=== PATIENT | female | born 1995 | race Caucasian/White ===

== ENCOUNTER 2019-01-10 06:09 | Inpatient (IN) | payer BC ==
[2019-01-10] MEDS ORDERED: OXYTOCIN 10 UNIT/ML 1 ML VIAL IM PRN (06:16)
[2019-01-10] MEDS ORDERED: LIDOCAINE 0.5% (PF) 5 MG/ML (50 ML SDV) SQ PRN (06:16)
[2019-01-10] MEDS ORDERED: CARBOPROST TROMETHAMINE 250 MCG/ML 1 ML AMP IM PRN (06:16)
[2019-01-10] MEDS ORDERED: METHYLERGONOVINE 0.2 MG/ML 1 ML AMP IM PRN (06:16)
[2019-01-10] MEDS ORDERED: TERBUTALINE 1 MG/ML VIAL SQ PRN (06:16)
[2019-01-10 06:24] VITALS: BMI 29.8
[2019-01-10] MEDS: LACTATED RINGERS 1,000 ML IV SCH ×3 (06:28→12:32)
[2019-01-10] MEDS: OXYTOCIN 30 UNITS/500 ML NS 30 UNIT in SALINE 1 500ML.BAG IV SCH (06:34)
[2019-01-10 06:51] LABS: Anisocytosis Slight; Basophils # (A) 0.1 k/uL (0-0.2); Basophils % (A) 1 %; Eosinophils # (A) 0.2 k/uL (0-0.7); Eosinophils % (A) 2 %; HCT 37.7 % (34.0-46.0); HGB 12.6 gm/dL (11.4-16.0); Lymphocytes # (A) 2.5 k/uL (1.0-4.8); Lymphocytes % (A) 22 %; MCH 31.2 pg (25.0-35.0); MCHC 33.4 g/dL (31.0-37.0); MCV 93.4 fL (80.0-100.0); Mean Platelet Volume 8.4; Monocytes # (A) 0.8 k/uL (0-1.0); Monocytes % (A) 7 %; Neutrophils # (A) 7.6 k/uL (1.3-7.7); Neutrophils % (A) 67 %; Platelet Count 279 k/uL (150-450); RBC 4.04 m/uL (3.80-5.40); RDW 16.9 % (11.5-15.5); WBC 11.4 k/uL (3.8-10.6)
[2019-01-10] MEDS ORDERED: BUTORPHANOL 1 MG/ML 1 ML VIAL IV PRN (10:01)
--- NOTE | 2019-01-10 10:01 | P.HPOB ---
History of Present Illness H&P Date: 01/10/19 Chief Complaint: IUP at 40-3/7 weeks, This is a 23-year-old 2 para 0010 at 40-3/7 weeks with an estimated due date of 01/07/2019 based on last menstrual period and consistent with 19 week ultrasound. Patient has been receiving routine care with myself and h as been essentially uncomplicated. Ultrasound was completed at 39 weeks' revealing an EFW of 7 lbs. 10 oz. which was the 45th percentile, amniotic fluid index was normal, at 17. On bloodwork this patient has a blood type of O+, rubella is immune, RPR nonreactive, B surface antigen negative, HIV negative, she did pass her one- hour Glucola with a result of 133 and 6/20. Group beta strep was negative on 12/06/18. NTD Was received on 11/07/18. Review of Systems Constitutional: Reports fatigue, Denies chills, Denies fever Ears, nose, mouth and throat: Denies headache Cardiovascular: Reports leg edema Respiratory: Denies dyspnea Gastrointestinal: Denies nausea, Denies vomiting Genitourinary: Reports Past Medical History Past Medical History: No Reported History History of Any Multi-Drug Resistant Organisms: None Reported Additional Past Surgical History / Comment(s): jennifer removed from back at age 12 Past Anesthesia/Blood Transfusion Reactions: No Reported Reaction Past Psychological History: No Psychological Hx Reported Smoking Status: Never smoker Past Alcohol Use History: None Reported Past Drug Use History: None Reported - Past Family History Mother Family Medical History: No Reported History Medications and Allergies Home Medications Medication Instructions Recorded Confirmed Type No Known Home Medications 01/10/19 01/10/19 History Allergies Allergy/AdvReac Type Severity Reaction Status Date / Time No Known Allergies Allergy Verified 01/10/19 06:16 Exam Osteopathic Statement: *. No significant issues noted on an osteopathic structural exam other than those noted in the History and Physical/Consult. Vital Signs Temp Pulse Resp BP Pulse Ox 01/10/19 06:18 97.8 F 76 14 133/73 98 Intake and Output 01/09/19 01/10/19 01/10/19 22:59 06:59 14:59 Other: Weight 78.925 kg Targeted physical exam is performed and state in general this a well-nourished well-developed female in no acute distress, breathing is noted to be nonlabored her heart has regular rate and rhythm, her abdomen is noted to be gravid and appropriate for gestational age, heart tones are noted to be category 1 and she is sarahi every 5 minutes, on cervical exam she was 2/50/-2 station. Repeat reexamination was done approximately an hour and half later she was noted to be 3/70/-2 therefore amniotomy was performed and clear fluid was obtained. heart tones remained category 1. Results Result Diagrams: 01/10/19 06:28 Abnormal Lab Results - Last 24 Hours (Table) 01/10/19 Range/Units 06:28 WBC 11.4 H (3.8-10.6) k/uL RDW 16.9 H (11.5-15.5) % Assessment and Plan (1) Post-dates Current Visit: Yes Status: Acute Code(s): O48.0 - POST-TERM SNOMED Code(s): 70189697 Plan: Patient is admitted to labor and delivery for Pitocin induction of labor. Pitocin is started per hospital protocol. Patient is offered Stadol/epidural for analgesia throughout labor she will decide which she would like. Anticipate spontaneous vaginal delivery later today.
[2019-01-10] MEDS ORDERED: SODIUM CHLORIDE 0.9% 100 ML BAG ONE (11:05)
[2019-01-10] MEDS ORDERED: ROPIVACAINE 5MG/ML 20ML VIAL ONE (11:05)
[2019-01-10] MEDS ORDERED: fentaNYL (PF) 50 MCG/ML 5 ML AMP ONE (11:05)
[2019-01-10] MEDS ORDERED: CITRIC ACID-SODIUM CITRATE 15 ML CUP PO ONE (17:16)
[2019-01-10] MEDS ORDERED: MORPHINE SULFATE (PF) 0.3 MG/0.3 ML SYR ONE (17:27)
[2019-01-10] MEDS ORDERED: OXYTOCIN 10 UNIT/ML 1 ML VIAL ONE (17:27)
[2019-01-10] MEDS ORDERED: ONDANSETRON 4 MG/2 ML VIAL IVP PRN (18:09)
[2019-01-10] MEDS ORDERED: METOCLOPRAMIDE 5 MG/ML 2 ML VIAL IVP PRN (18:09)
[2019-01-10] MEDS ORDERED: NALOXONE 0.4 MG/ML 1 ML VIAL IV PRN (18:09)
[2019-01-10] MEDS ORDERED: ACETAMINOPHEN IV (For NPO) 1,000 MG in EMPTY BAG 1 BAG IVPB ONE (18:09)
[2019-01-10] MEDS ORDERED: diphenhydrAMINE 50 MG/ML 1 ML VIAL IVP PRN ×2 (18:09)
[2019-01-10] MEDS ORDERED: diphenhydrAMINE 50 MG CAP PO PRN (18:09)
[2019-01-10] MEDS ORDERED: ZOLPIDEM 5 MG TAB PO PRN (18:09)
[2019-01-10] MEDS ORDERED: HYDROcodone/APAP 5-325MG 1 EACH TAB PO PRN (18:09)
[2019-01-10] MEDS ORDERED: diphenhydrAMINE 25 MG CAP PO PRN (18:09)
[2019-01-10] MEDS ORDERED: ACETAMINOPHEN TAB 325 MG TAB PO PRN (18:09)
[2019-01-10] MEDS ORDERED: IBUPROFEN IV 800 MG in SODIUM CHLORIDE 0.9% 250 ML IV ONE (18:11)
--- NOTE | 2019-01-10 18:17 | P.OP ---
Date of Procedure: 01/10/19 Preoperative Diagnosis: IUP at 40-3/7 weeks, arrest of descent Postoperative Diagnosis: Same Procedure(s) Performed: Primary low transverse section Anesthesia: epidural Surgeon: Tahmina Gleason Arabic Teacher #1: Jelena Kumar Estimated Blood Loss (ml): 600 IV fluids (ml): 1,000 Urine output (ml): 200 Pathology: none sent Condition: stable Disposition: observation Indications for Procedure: This 23-year-old 2 para 0010 at 40-3/7 weeks was admitted to labor and delivery progressed to complete began pushing and had an hour and a half no descent of the head was noted past -1-0 station. Increasing It was noted. The decision was made to take the patient for primary low transverse section secondary to arrest of descent. Operative Findings: Normal uterus tubes and ovaries were appreciated. Female infant noted to be in occiput transverse presentation born at 1743, 8 lbs. 13 oz., 4000 g, Apgars of 8 and 9 at one and 5 minutes respectively. Description of Procedure: Patient was taken back to the operating suite after informed consent was obtained. Patient was counseled on the risks of surgery including but not dowd ited to infection, bleeding, damage to bladder, bowel, ureteric injury. Patient stated understanding. Once anesthesia was noted to be adequate a Pfannenstiel skin incision was made with scalpel. The incision was then carried down to the underlying layer of fascia. Fascia was then incised in the midline and extended laterally. The superior aspect of the fascial incision was then grasped with C oker clamps, elevated and underlying rectus muscles dissected off sharply. Attention was then turned to the inferior aspect of the fascial incision which was grasped dhruv clamps, elevated and underlying rectus muscle was next dissected off sharply. The peritoneum was identified after the rectus muscles had been and entered. The bladder blade was then inserted and into the abdomen. The vesicouterine peritoneum was identified and a bladder flap was created using sharp and blunt dissection. A hysterotomy incision was then made with the scalpel and the infant was delivered through the hysterotomy site. The umbilical cord was doubly clamped and cut and handed off to awaiting RN. The placenta was then delivered manually intact and the uterus was cleared of all clots and debris. Hysterotomy incision was then closed with 0 Vicryl in a running locked fashion from one lateral edge the other a second suture was used to obtain hemostasis. Small amount of bleeding was noted on the left-hand side of the incision and therefore a ycdwik-ie-ouamw suture was used to obtain hemostasis. The uterus was then returned to the abdomen and the gutters were cleared of all clots and debris and hysterotomy incision was noted to be hemostatic. The fascia was then closed with 0 Vicryl from one lateral edge to the other. The subcutaneous tissue was then irrigated hemostasis was apprecia mariano. The skin was then closed with 4-0 Vicryl in a subcuticular fashion. Steri-Strips and sterile dressings were applied as needed. All counts were correct 2 patient tolerated procedure well and was taken the recovery room awake in stable condition.
[2019-01-11 07:16] LABS: Basophils % (A) 0 %; Eosinophils # (A) 0.1 k/uL (0-0.7); Eosinophils % (A) 1 %; HCT 30.9 % (34.0-46.0); HGB 10.2 gm/dL (11.4-16.0); Lymphocytes # (A) 1.5 k/uL (1.0-4.8); Lymphocytes % (A) 9 %; MCH 31.1 pg (25.0-35.0); MCHC 33.1 g/dL (31.0-37.0); MCV 93.9 fL (80.0-100.0); Mean Platelet Volume 9.7; Monocytes # (A) 0.9 k/uL (0-1.0); Monocytes % (A) 6 %; Neutrophils # (A) 13.9 k/uL (1.3-7.7); Neutrophils % (A) 84 %; Platelet Count 201 k/uL (150-450); RBC 3.29 m/uL (3.80-5.40); RDW 15.3 % (11.5-15.5); WBC 16.7 k/uL (3.8-10.6)
--- NOTE | 2019-01-11 08:29 | P.PNOBGPC ---
Subjective - Subjective Principal diagnosis: Postop day 1 Interval history: Patient did well overnight. Her Cole remains in place secondary to significant vulvar swelling from pushing. She denies discomfort this morning. She states her lochia is minimal. She states breast feeding well well overnight. Patient reports: Reports appetite normal, Reports pain well controlled : doing well, nursing well Objective - Vital Signs Latest vital signs: Vital Signs Temp Pulse Resp BP Pulse Ox 01/11/19 04:00 98.1 F 71 16 112/69 01/11/19 00:00 98 F 70 16 112/55 99 01/10/19 19:52 99.2 F 89 15 130/65 95 01/10/19 19:07 84 18 123/70 97 01/10/19 18:52 83 16 118/73 97 01/10/19 18:37 80 16 122/71 96 01/10/19 18:22 99.1 F 89 16 122/63 96 Intake and Output 01/10/19 01/11/19 01/11/19 22:59 06:59 14:59 Intake Total 1000 Output Total 1800 1600 Balance -800 -1600 Intake: IV 1000 Blood Product 0 Output: Urine 300 1600 Emesis 0 Estimated Blood Loss 1500 Other: Voiding Method Indwelling Catheter - Exam Extremities: Present: normal, edema Abdomen: Present: normal appearance Incision: Present: normal, dry, intact Uterus: Present: normal, firm - Labs Labs: Abnormal Lab Results - Last 24 Hours (Table) 01/11/19 Range/Units 07:02 WBC 16.7 H (3.8-10.6) k/uL RBC 3.29 L (3.80-5.40) m/uL Hgb 10.2 L (11.4-16.0) gm/dL Hct 30.9 L (34.0-46.0) % Neutrophils # 13.9 H (1.3-7.7) k/uL Assessment and Plan (1) Post-dates Current Visit: Yes Status: Acute Code(s): O48.0 - POST-TERM SNOMED Code(s): 27653590 (2) Arrest of descent, delivered, current hospitalization Current Visit: Yes Status: Acute Code(s): O62.1 - SECONDARY UTERINE INERTIA SNOMED Code(s): 91406018 (3) S/P section Current Visit: Yes Status: Acute Code(s): Z98.891 - HISTORY OF UTERINE SCAR FROM PREVIOUS SURGERY SNOMED Code(s): 621442179 Plan: Patient is doing well on this postoperative day #1. We will discontinue Cole this morning, encourage ambulation, advance diet to regular. Anticipate discharge home tomorrow.
[2019-01-11] MEDS: IBUPROFEN 600 MG TAB PO PRN ×2 (09:25→15:30)
[2019-01-11] MEDS: SENNOSIDES-DOCUSATE SODIUM 1 EACH TAB PO SCH ×3 (09:26→20:51)
[2019-01-11] MEDS: LACTATED RINGERS 1,000 ML IV SCH ×3 (20:50→20:51)
[2019-01-11] MEDS: OXYTOCIN 30 UNITS/500 ML NS 30 UNIT in SALINE 1 500ML.BAG IV SCH (20:52)
--- NOTE | 2019-01-12 07:43 | P.DS ---
Providers Date of admission: 01/10/19 06:09 Expected date of discharge: 01/12/19 Attending physician: Tahmina Gleason Primary care physician: Stated None Hospital Course: This is a 23-year-old white female 2 para 0010 EDC 01/07/2019 at 40-3/7 weeks' gestation. Patient presented for induction for postdates per her primary care shingle shearing machine operator. Her was essentially unremarkable, rubella status immune, blood type O positive, group B strep cultures negative. Please see dictated history and physical for details. Patient progressed through labor, became completely dilated, had arrest of descent in the second stage. Decision was made to proceed with primary low transverse section. She went on to deliver a liveborn female infant with scores of 8 and 9 at one and 5 minutes respectively. Infant weighed 4000 g, please see dictated operative note for details. Postoperatively the patient has done well. This morning she is voiding, ambulating, and passing flatus without difficulty. Vital signs are stable and she is afebrile. Breast-feeding is going well, I have provided her with a prescription for breast pump per her request. Pain is well tolerated. Her incision is clean and dry, intact, with Steri-Strips applied. Patient is judged to be in very good condition for discharge home. She will follow-up with her primary care shingle shearing machine operator in 2 weeks for incision check. I have reminded her no intercourse, tampons or douching. She will use [id number] Advil or Aleve, or Motrin as needed for pain. She will call with any fevers shakes or chills, foul smelling or copious lochia, with any incisional issues, with any pain not alleviated by [id number]-hmq-twchcst medication, or indeed with any concerns. She and her are contemplating her options for contraception and we'll discuss this further in the office. Patient Condition at Discharge: Good Plan - Discharge Summary Discharge Rx Participant: No New Discharge Prescriptions: No Action No Known Home Medications Discharge Medication List No Known Home Medications 01/10/19 [History] Follow up Appointment(s)/Referral(s): Tahmina Gleason DO [Doctor of Osteopathic Medicine] - 2 Weeks Discharge Disposition: HOME SELF-CARE
[2019-01-12] MEDS: IBUPROFEN 600 MG TAB PO PRN (08:25)
[2019-01-12] MEDS: SENNOSIDES-DOCUSATE SODIUM 1 EACH TAB PO SCH (08:26)
[2019-01-12 08:32] VITALS: BP 124/61; PULSE 92; RESP 18; TEMP 98.2
== END 2019-01-12 13:45 | disposition home or self-care (01) | DRG 788 ==
LOC: 4FBP 06:09
PROVIDERS: ADMIT Obstetrics & Gynecology Obstetrics; ATTEND Obstetrics & Gynecology Obstetrics
PROC: 3E033VJ Introduction of Other Hormone into Peripheral Vein, Percutaneous Approach (ICD-10-PCS; principal; 2019-01-10 17:39)
PROC: 00HU33Z Insertion of Infusion Device into Spinal Canal, Percutaneous Approach (ICD-10-PCS; principal; 2019-01-10 17:39)
PROC: 10907ZC Drainage of Amniotic Fluid, Therapeutic from Products of Conception, Via Natural or Artificial Opening (ICD-10-PCS; principal; 2019-01-10 17:39)
PROC: 3E0R3NZ Introduction of Analgesics, Hypnotics, Sedatives into Spinal Canal, Percutaneous Approach (ICD-10-PCS; principal; 2019-01-10 17:39)
PROC: 10D00Z1 Extraction of Products of Conception, Low, Open Approach (ICD-10-PCS; principal; 2019-01-10 17:39)
DX: O32.4XX0 Maternal care for high head at term, not applicable or unspecified (principal); O48.0 Post-term pregnancy; Z37.0 Single live birth; Z3A.40 40 weeks gestation of pregnancy; O62.1 Secondary uterine inertia
CPT/HCPCS: 85025; 86850; 86900; 86901

== ENCOUNTER → 2021-08-28 | Outpatient (CLI) | payer OTHER | END | disposition home or self-care (01) | LOC: LABWHC1 11:14 | PROVIDERS: ATTEND Obstetrics & Gynecology Obstetrics | DX: O20.0 Threatened abortion (principal); Z3A.00 Weeks of gestation of pregnancy not specified | CPT/HCPCS: 36415; 84702 ==

== ENCOUNTER → 2022-02-16 | Outpatient (CLI) | payer OTHER ==
--- NOTE | 2022-02-16 15:12 | FL ---
EXAMINATION TYPE: FL hysterosalpingography DATE OF EXAM: 02/16/2022 3:01 PM CLINICAL INDICATION:Female, 26 years old with history of N97.9 INFERTILITY; COMPARISON: None TECHNIQUE: The patient was draped in a sterile technique. A speculum examination was performed to alesha ntify the cervical os and no abnormal cervical discharge was noted. A 5-Gibraltarian catheter was inserted past the cervix and its balloon insufflated. The speculum was then removed and under fluoroscopic gu idance 5 mL of Isovue 370 was injected into the endometrial cavity. Frontal fluoroscopic images were obtained, the balloon deflated, and catheter removed. A preprocedural fluoroscopic image of the pel vis was obtained. Fluoroscopic time: 3 seconds Fluoroscopic images: 0 Radiographs taken: 13 The morphology of the opacified uterine cavity does not reveal any obvious filling defect such as any septum. Arcuate uterine morphology is suggested but no definitive evidence for bicornuate morphology. FINDINGS: Personnel Records Clerk view of the pelvis demonstrates no acute process or osseous abnormality. Uterus: The endometrium demonstrates normal shape and contour without filling defects. Right fallopian tube: The right fallopian tube has a normal appearance and demonstrates extravasation of contrast into the pelvis. Left fallopian tube: The left fallopian tube has a normal appearance and demonstrates extravasation o f contrast into the pelvis. A preprocedural image of the pelvis demonstrates catheter within appropriate position.. Contrast was seen in both Fallopian tubes with normal spillage into the pelvis bilaterally. IMPRESSION: Patent fallopian tubes with free spillage of contrast bilaterally.
== END | disposition home or self-care (01) ==
LOC: RADUSWWP 13:53
PROVIDERS: ATTEND Obstetrics & Gynecology Obstetrics
DX: N97.9 Female infertility, unspecified (principal)
CPT/HCPCS: 58340; 74740; Q9967

== ENCOUNTER → 2023-04-07 | Outpatient (CLI) | payer OTHER | END | disposition home or self-care (01) | LOC: LABWHC1 08:31 | PROVIDERS: ATTEND Obstetrics & Gynecology Reproductive Endocrinology | DX: Z32.00 Encounter for pregnancy test, result unknown (principal) | CPT/HCPCS: 36415; 84144; 84702 ==

== ENCOUNTER 2023-12-31 09:01 | Inpatient (IN) | payer OTHER ==
[2023-12-30 14:32] VITALS: BMI 29.3
[2023-12-31] MEDS ORDERED: TRANEXAMIC 1,000 MG/100ML-NACL 1,000 MG in EMPTY BAG 1 BAG IV PRN (09:21)
[2023-12-31] MEDS ORDERED: CARBOPROST TROMETHAMINE 250 MCG/ML 1 ML AMP IM PRN (09:21)
[2023-12-31] MEDS ORDERED: METHYLERGONOVINE 0.2 MG/ML 1 ML AMP IM PRN (09:21)
[2023-12-31] MEDS ORDERED: miSOPROStoL 200 MCG TAB PO PRN (09:21)
[2023-12-31] MEDS ORDERED: OXYTOCIN 10 UNIT/ML 1 ML VIAL IM PRN (09:21)
[2023-12-31] MEDS: LACTATED RINGERS 1,000 ML IV SCH ×2 (09:42→20:15)
[2023-12-31 10:00] LABS: Basophils % (A) 0 %; Eosinophils # (A) 0.1 k/uL (0-0.7); Eosinophils % (A) 1 %; HCT 35.7 % (34.0-46.0); HGB 11.9 gm/dL (11.4-16.0); Lymphocytes # (A) 2.2 k/uL (1.0-4.8); Lymphocytes % (A) 22 %; MCH 31.5 pg (25.0-35.0); MCHC 33.3 g/dL (31.0-37.0); MCV 94.7 fL (80.0-100.0); Mean Platelet Volume 9.1; Monocytes # (A) 0.5 k/uL (0-1.0); Monocytes % (A) 5 %; Neutrophils # (A) 6.9 k/uL (1.3-7.7); Neutrophils % (A) 70 %; Platelet Count 339 k/uL (150-450); RBC 3.77 m/uL (3.80-5.40); WBC 9.9 k/uL (3.8-10.6)
[2023-12-31] MEDS: CITRIC ACID-SODIUM CITRATE 15 ML CUP PO ONE (10:04)
--- NOTE | 2023-12-31 10:35 | P.HPOB ---
History of Present Illness H&P Date: 12/31/23 Chief Complaint: IUP at 39-0/7 weeks, history of x 1 desires repeat 28-year-old 3 para 1-0-1-1 at 39-0/7 weeks, estimated due date of 01/06 presents for scheduled repeat section. Patient has been receiving routine care with myself which has been essentially uncomplicated. Patient notes good movement denies vaginal bleeding or loss of fluid. On blood work this patient is a blood type of O+, rubella status immune, hepatitis B surface engine negative, HIV negative, RPR is nonreactive, grew beta strep culture is negative. Review of Systems Constitutional: Denies chills, Denies fatigue, Denies fever Ears, nose, mouth and throat: Denies headache Cardiovascular: Reports leg edema Respiratory: Denies dyspnea Gastrointestinal: Denies constipation, Denies diarrhea, Denies nausea, Denies vomiting Genitourinary: Reports Past Medical History Past Medical History: No Reported History Additional Past Medical History / Comment(s): pt states "there was a concern for gestational diabetes at week 30 w/ but second glucose tolerance test was ok" History of Any Multi-Drug Resistant Organisms: None Reported Past Surgical History: Section Additional Past Surgical History / Comment(s): jennifer removed from back at age 12 Past Anesthesia/Blood Transfusion Reactions: No Reported Reaction Additional Past Anesthesia/Blood Transfusion Reaction / Comment(s): no hx blood transfusion Past Psychological History: No Psychological Hx Reported Smoking Status: Never smoker Past Alcohol Use History: Occasional Additional Past Alcohol Use History / Comment(s): no alcohol during Past Drug Use History: None Reported - Past Family History Mother Family Medical History: No Reported History Medications and Allergies Home Medications Medication Instructions Recorded Confirmed Type Vit No.179/Iron/Folic 1 each PO DAILY 12/30/23 12/31/23 History [ Tablet] Allergies Allergy/AdvReac Type Severity Reaction Status Date / Time latex Allergy skin Verified 12/31/23 09:21 sensitivity Exam Osteopathic Statement: *. No significant issues noted on an osteopathic structural exam other than those noted in the History and Physical/Consult. Vital Signs Temp Pulse Resp BP Pulse Ox 12/31/23 09:20 97.5 F L 60 16 127/69 99 Intake and Output 12/30/23 12/31/23 12/31/23 22:59 06:59 14:59 Other: Weight 77.564 kg Targeted physical exam is performed this date General Is a well-nourished well- developed female in no acute distress, breathing is nonlabored, heart has a regular rate and rhythm, abdomen is gravid, cervical exam is deferred, heart tones are noted to be category 1 and she is sarahi every 1 to 5 minutes. Results Result Diagrams: 12/31/23 08:24 Abnormal Lab Results - Last 24 Hours (Table) 12/31/23 Range/Units 08:24 RBC 3.77 L (3.80-5.40) m/uL Assessment and Plan (1) Term Current Visit: Yes Status: Acute Code(s): Z34.90 - ENCNTR FOR SUPRVSN OF NORMAL , UNSP, UNSP TRIMESTER SNOMED Code(s): 78583012 (2) History of section Current Visit: Yes Status: Acute Code(s): Z98.891 - HISTORY OF UTERINE SCAR FROM PREVIOUS SURGERY SNOMED Code(s): 254333582 Plan: 28-year-old 3 para 1-0-1-1 at 39-0/7 weeks that presents for scheduled repeat section. Patient was counseled on options and desires repeat. Procedure is reviewed and questions are answered. Patient denies concerns an esthesia is in to see patient will proceed to operating suite.
[2023-12-31] MEDS ORDERED: MORPHINE SULFATE (PF) 0.3 MG/0.3 ML SYR ONE (11:01)
[2023-12-31] MEDS ORDERED: ONDANSETRON 4 MG/2 ML VIAL ONE (11:01)
[2023-12-31] MEDS ORDERED: OXYTOCIN 30 UNITS/500 ML NS BAG IV ONE (11:01)
[2023-12-31] MEDS ORDERED: ePHEDrine 50 MG/ML 1 ML VIAL ONE (11:01)
[2023-12-31] MEDS ORDERED: diphenhydrAMINE 50 MG/ML 1 ML VIAL IVP PRN (11:54)
[2023-12-31] MEDS ORDERED: ZOLPIDEM 5 MG TAB PO PRN (11:54)
[2023-12-31] MEDS ORDERED: NALOXONE 0.4 MG/ML 1 ML VIAL IV PRN (11:54)
[2023-12-31] MEDS ORDERED: diphenhydrAMINE 25 MG CAP PO PRN (11:54)
[2023-12-31] MEDS ORDERED: ONDANSETRON 4 MG/2 ML VIAL IVP PRN (11:54)
[2023-12-31] MEDS ORDERED: METOCLOPRAMIDE 5 MG/ML 2 ML VIAL IVP PRN (11:54)
[2023-12-31] MEDS ORDERED: diphenhydrAMINE 50 MG CAP PO PRN (11:54)
--- NOTE | 2023-12-31 11:54 | P.OP ---
Date of Procedure: 12/31/23 Preoperative Diagnosis: IUP at 39-0/7 weeks, history of x 1 desires repeat Postoperative Diagnosis: Same Procedure(s) Performed: Repeat section Anesthesia: spinal Surgeon: Tahmina Gleason Glass Novelty Maker #1: Shawna Trinh Estimated Blood Loss (ml): 598 IV fluids (ml): 1,000 Urine output (ml): 400 Condition: stable Disposition: observation Indications for Procedure: 28-year-old 3 para 1-0-1-1 at 39-0/7 weeks presents for repeat section. Patient had a prior section and desires repeat. Operative Findings: Normal uterus tubes and ovaries were appreciated. Viable male infant delivered at 1128, weight of 7 pounds 12 ounces Apgars of 9 and 9 at 1 and 5 minutes respectively. Description of Procedure: The patient was prepped and draped in the usual fashion after spinal anesthesia was administered by the anesthesia department. A Pfannenstiel incision was made and extended of the abdominal cavity without difficulty. The bladder peritoneum was elevated and incised and reflected distally. A 2 cm incision was made in the transverse plane of the lower uterine segment to enter the uterus at which time clear fluid was noted. The incision was extended in both directions using the bandage scissors. The head was encountered within the field and delivered up and through the incision where the nose and mouth were thoroughly suctioned. Remainder of the infant was delivered onto the surgical field where the cord was doubly clamped, cut, and the infant was passed for resuscitative measures with weight and Apgars as noted above. A segment of cord was then doubly clamped, cut, and set aside should cord gases become necessary. The placenta was delivered manually, intact, and was grossly normal with a grossly normal three-vessel cord. The uterus was exteriorized and the interior cavity of the uterus swept of any remaining placental and membranous fragments with a laparotomy sponge. The margins of the incision were grasped with Allis clamps and the incision closed in 2 layers. First layer was a running locking layer of 0 Vicryl from margin to margin followed by a second layer of imbricating 0 Vicryl from margin to margin. Bleeding was noted in the midportion of the uterus from a large sinus a rlhzls-iz-gsylo suture was used to obtain hemostasis. Once hemostasis was achieved, the posterior cul-de-sac was suctioned with a guard and the uterine and ovarian findings are as noted above. The uterus was replaced within the abdominal cavity and the gutters swept of any remaining blood fluid or clot. The incision was again reexamined and hemostasis was noted to be excellent. Any small point of bleeding were made hemostatic with the Bovie. Once hemostasis was achieved the parietal peritoneum was loose ly reapproximated. The layer of muscles were examined and made hemostatic with the Bovie. Attention was then turned to the fascia which was closed with 2 running stitches of 0 Vicryl proceeding from the lateral margins to the midpoint. The subcutaneous tissues were irrigated, made hemostatic with the Bovie, and reapproximated with a running stitch of 30 Vicryl. The skin was reapproximated with 4-0 Vicryl. Estimated blood loss for the case was approximately 598 mL. All sponge instrument and needle counts are correct. There were no complications. The patient tolerated the procedure well and proceeded to the recovery room in stable condition. Both mother and are resting comfortably in recovery.
[2023-12-31] MEDS: ACETAMINOPHEN IV (For NPO) 1,000 MG in EMPTY BAG 1 BAG IVPB SCH (14:07)
[2023-12-31] MEDS: diphenhydrAMINE 50 MG/ML 1 ML VIAL IVP PRN (15:22)
[2023-12-31] MEDS: ACETAMINOPHEN TAB 500 MG TAB PO SCH (19:34)
[2023-12-31] MEDS: IBUPROFEN 600 MG TAB PO SCH (19:35)
[2023-12-31] MEDS: LACTATED RINGERS 1,000 ML IV ONE (19:37)
[2023-12-31] MEDS: IBUPROFEN IV 800 MG in SODIUM CHLORIDE 0.9% 250 ML IV SCH (20:10)
[2023-12-31] MEDS: SENNOSIDES-DOCUSATE SODIUM 1 EACH TAB PO SCH (20:14)
[2024-01-01 06:36] LABS: Basophils % (A) 0 %; Eosinophils # (A) 0.2 k/uL (0-0.7); Eosinophils % (A) 1 %; HCT 32.4 % (34.0-46.0); HGB 10.8 gm/dL (11.4-16.0); Lymphocytes # (A) 2.4 k/uL (1.0-4.8); Lymphocytes % (A) 17 %; MCH 31.9 pg (25.0-35.0); MCHC 33.3 g/dL (31.0-37.0); MCV 95.7 fL (80.0-100.0); Monocytes # (A) 0.8 k/uL (0-1.0); Monocytes % (A) 5 %; Neutrophils # (A) 10.3 k/uL (1.3-7.7); Neutrophils % (A) 75 %; Platelet Count 306 k/uL (150-450); RBC 3.38 m/uL (3.80-5.40); RDW 13.4 % (11.5-15.5); WBC 13.8 k/uL (3.8-10.6)
--- NOTE | 2024-01-01 11:13 | P.PNOBGPC ---
Subjective - Subjective Principal diagnosis: Stop day 1, repeat section Interval history: Patient is doing well postoperatively. She is ambulating and voiding without difficulty. She is breast-feeding without difficulty. She states her pain is well-controlled. Her lochia is minimal. Patient reports: Reports appetite normal, Reports voiding normally, Reports pain well controlled, Reports ambulating normally [place]: doing well, nursing well Objective - Vital Signs Latest vital signs: Vital Signs Temp Pulse Pulse Resp BP BP Pulse Ox 01/01/24 04:00 98.4 F 74 16 97/57 95 12/31/23 23:45 98.5 F 57 L 16 102/63 96 12/31/23 20:05 98.5 F 70 16 102/65 96 12/31/23 15:51 97.9 F 72 16 122/76 16 L 12/31/23 13:55 67 16 117/68 99 12/31/23 13:40 76 16 114/69 12/31/23 13:25 57 L 16 116/65 98 12/31/23 13:10 67 16 111/58 98 12/31/23 12:55 56 L 16 109/59 98 12/31/23 12:40 75 16 114/67 97 12/31/23 12:25 80 16 107/51 95 12/31/23 12:10 71 16 119/60 98 12/31/23 11:55 96.6 F L 92 16 114/55 96 Intake and Output 12/31/23 01/01/24 01/01/24 22:59 06:59 14:59 Output Total 1950 Balance -1950 Output: Urine 1950 Uretheral (Cole) 1000 Other: Voiding Method Indwelling Catheter - Exam Extremities: Present: normal, edema Abdomen: Present: normal appearance, soft Incision: Present: normal, dry, intact Uterus: Present: normal, firm - Labs Labs: Abnormal Lab Results - Last 24 Hours (Table) 01/01/24 Range/Units 06:18 WBC 13.8 H (3.8-10.6) k/uL RBC 3.38 L (3.80-5.40) m/uL Hgb 10.8 L (11.4-16.0) gm/dL Hct 32.4 L (34.0-46.0) % Neutrophils # 10.3 H (1.3-7.7) k/uL Assessment and Plan (1) Term Current Visit: Yes Status: Acute Code(s): Z34.90 - ENCNTR FOR SUPRVSN OF NORMAL , UNSP, UNSP TRIMESTER SNOMED Code(s): 05337161 (2) History of section Current Visit: Yes Status: Acute Code(s): Z98.891 - HISTORY OF UTERINE SCAR FROM PREVIOUS SURGERY SNOMED Code(s): 307088662 (3) S/P section Current Visit: No Status: Acute Code(s): Z98.891 - HISTORY OF UTERINE SCAR FROM PREVIOUS SURGERY SNOMED Code(s): 627805238 Plan: Patient is doing well postoperatively. Encourage increased ambulation, continue routine postoperative care and anticipate discharge home tomorrow.
[2024-01-01] MEDS: PRENATAL VIT-IRON-FOLIC ACID 1 EACH TABLET PO SCH (12:52)
--- NOTE | 2024-01-01 20:14 | P.PN ---
Progress Note - Text 01/01/24 715am 28-year-old female status post with spinal Duramorph. Patient seen, she has a VAS of 2 with no complaints of nausea vomiting. She does have pruritus and was treated with Benadryl. Pruritus should subside soon
[2024-01-01 23:24] VITALS: TEMP 98.3
[2024-01-02 08:17] VITALS: BP 113/71; PULSE 74; RESP 16
--- NOTE | 2024-01-02 09:13 | P.DS ---
Providers Date of admission: 12/31/23 09:01 Expected date of discharge: 01/02/24 Attending physician: Tahmina Gleason Primary care physician: Stated None - Discharge Diagnosis(es) (1) Term Current Visit: Yes Status: Acute (2) History of section Current Visit: Yes Status: Acute (3) S/P section Current Visit: No Status: Acute Hospital Course: This is a 28-year-old 3 now para 2-0-1-2 that presented to labor and delivery at 39-0/7 weeks for scheduled repeat section. Patient has been receiving routine care with myself which has been essentially uncomplicated. For full details on this patient please the dictated history and physical. Patient was taken back to the operating suite where viable male was delivered at 1128, weight of 7 pounds 12 ounces. Patient has done well postoperatively. On this postoperative day #2 she is ambulating and voiding without difficulty. She is tolerating a regular diet without nausea or vomiting. States her lochia is minimal. She is breast-feeding without difficulty. She denies concerns and would like discharge home. Patient Condition at Discharge: Good Plan - Discharge Summary Discharge Rx Participant: No New Discharge Prescriptions: No Action Vit No.179/Iron/Folic [ Tablet] 1 each PO DAILY Discharge Medication List Vit No.179/Iron/Folic [ Tablet] 1 each PO DAILY 12/30/23 [History] Follow up Appointment(s)/Referral(s): Tahmina Gleason DO [Doctor of Osteopathic Medicine] - 1 Week Patient Instructions/Handouts: (DC), (GEN) Activity/Diet/Wound Care/Special Instructions: No intercourse, tampons or tub baths. No heavy lifting greater than a gallon of milk. No driving for two weeks. Call with any fever, shakes or chills, with any pain not alleviated by over the counter meds, or with any questions or concerns. Iyuu-iut-[id number] ibuprofen 600 mg or 3 tablets, as needed for pain at home. Discharge Disposition: HOME SELF-CARE
== END 2024-01-02 11:30 | disposition home or self-care (01) | DRG 788 ==
LOC: 4FBP 09:01
PROVIDERS: ADMIT Obstetrics & Gynecology Obstetrics; ATTEND Obstetrics & Gynecology Obstetrics
PROC: 10D00Z1 Extraction of Products of Conception, Low, Open Approach (ICD-10-PCS; principal; 2023-12-31 12:00)
DX: O34.211 Maternal care for low transverse scar from previous cesarean delivery (principal); L29.9 Pruritus, unspecified; Z37.0 Single live birth; Z3A.39 39 weeks gestation of pregnancy